=== PATIENT | female | born 1930 ===

== ENCOUNTER 2018-12-01 13:42 | Emergency (ER) | payer OTHER ==
[~2018-12-01] VITALS: Ht 162.6 cm; Wt 59.0 kg
[~2018-12-01 13:42] MED LIST: ASPI81CH PO; ATEN25 PO; Colace100 MG PO; Crestor20 MG PO; ERGO50000 PO; ERYT.5TO BOTHEYES; FURO40 PO; Fabb Tablet1 EACH PO; HYDR1TAB94 PO; LISI10 PO; LISI20 PO; LOSA50 PO; MONT10T PO; OLME20 PO; PRED1SU BOTHEYES; ROSU10TA PO; SIMV20 PO; TRIA80TC TOP; TRIHYD5075 PO
[2018-12-01] MEDS ORDERED: OLMESARTAN MEDO40 MG PO (14:04)
[2018-12-01] MEDS ORDERED: METO50ER PO (14:05)
== END 2018-12-01 17:00 | disposition home or self-care (01) ==
LOC: ER 13:42
DX: S01.112A Laceration without foreign body of left eyelid and periocular area, initial encounter (principal); S61.412A Laceration without foreign body of left hand, initial encounter; W01.198A Fall on same level from slipping, tripping and stumbling with subsequent striking against other object, initial encounter; Z79.899 Other long term (current) drug therapy; Z79.82 Long term (current) use of aspirin; I10 Essential (primary) hypertension; E78.5 Hyperlipidemia, unspecified
CPT/HCPCS: 12011; 70450; 72125; 73130; 99284-25